=== PATIENT | male | born 1990 | race Caucasian/White ===

== ENCOUNTER 2020-05-11 11:47 | Emergency (ER) | payer SELFPAY ==
[2020-05-11 11:57] VITALS: BP 140/67; PULSE 111; RESP 18; TEMP 37.2; O2SAT 98; BMI 31.4
[2020-05-11 12:20] VITALS: BP 146/62; PULSE 111; RESP 20; O2SAT 98
--- NOTE | 2020-05-11 12:39 | ED_ITS ---
HPI - General Adult General: Chief complaint: General Medical Stated complaint: Confusion/fatigue Time Seen by Provider: 05/11/20 12:12 History of Present Illness: HPI narrative: Patient is a 29-year-old male who comes to the ED with scrotal pain, dysuria and penile discharge for the past 2 weeks. Patient denies any previous STDs. Denies any recent sexual intercourse over the last 2 weeks. Denies fever, chills, abdominal pain, flank pain, nausea/vomiting or bowel symptoms. He describes the penile discharge as white/yellow. He says it aquino whenever he urinates and he has tenderness in his scrotal area. Denies any lesions on the scrotum. Associated symptoms: Deny chest pain, dyspnea, headache(s), nausea, rash, palpitations or vomiting Review of Systems Const: Denies: fever(s), chills or fatigue Eyes: Denies: change in vision or eye discomfort ENMT: Denies: throat pain, odynophagia, nasal discharge or nasal congestion Card: Denies: chest pain, palpitations, edema, swelling of feet/ankles, dyspnea on exertion or orthopnea Resp: Denies: dyspnea, productive cough or non-productive cough GI: Denies: abdominal pain, nausea, vomiting, diarrhea, constipation or hematochezia : Reports: dysuria and penile discharge (white/yellow discharge); Denies: flank pain, difficulty urinating or hematuria Musc: Denies: neck pain, back pain or extremity swelling Skin/Breast: Denies: rash or new lesions Neuro: Denies: headache(s), numbness in extremities or weakness in extremities Physical Exam Narrative: EXAM NARRATIVE: Patient is a 29-year-old male who is sitting comfortably on exam chair when I enter the room. He is showing no signs of acute distress. Const: COMMON NORMALS: no acute distress, patient oriented x3 and alert GENERAL APPEARANCE: cooperative and comfortable HENMT: COMMON NORMALS: normocephalic HEAD & SCALP: normocephalic MOUTH: Normal oral and palatal mucosa present THROAT: posterior oropharynx normal and uvula midline Neck/C-Spine: COMMON NORMALS: supple GENERAL: Yes normal visual inspection Resp: COMMON NORMALS: normal respiratory effort, No retractions, No use of accessory muscles and clear to auscultation bilaterally AUSCULTATION: clear to auscultation bilaterally Cardio: COMMON NORMALS: regular rate, regular rhythm, S1 normal heart sound present, S2 normal heart sound present, No gallops present (Cardio), No clicks present (Cardio), No murmurs present (Cardio) and Peripheral pulses 2+ throughout RATE: regular rate RHYTHM: regular rhythm HEART SOUNDS: S1 normal heart sound present and S2 normal heart sound present PERIPHERAL PULSES: Peripheral pulses 2+ throughout GI: COMMON NORMALS: Normal to inspection, nondistended, normoactive bowel sounds present, Soft to palpation, non-tender and no masses PALPATION: Yes Soft to palpation : COMMON NORMALS: Yes no CVA tenderness BLADDER/KIDNEY EXAM: Yes no CVA tenderness PENIS: normal penis, circumcised, no papules, no pustules and no vesicles MEATUS: meatus normal, meatal discharge (Purulent discharge.) and No Blood at meatus present SCROTUM: Yes Scrotal tenderness present, No Scrotal lesions present and No scrotal mass TESTES: Yes testicular lie normal, No Enlarged testicle(s) present, No testicular swelling and Yes testicular tenderness Testicular tenderness laterality: bilateral Back/Pelvis: COMMON NORMALS: no CVA tenderness Extremity: COMMON NORMALS: normal to inspection Neuro: COMMON NORMALS: patient oriented x3 and moves all extremities SENSORIUM/ORIENTATION: Yes alert Skin: GENERAL SKIN EXAM: dry skin Course Vital Signs: Vital signs: Vital Signs Temperature 97.9 F 05/11/20 15:28 Pulse Rate 79 05/11/20 15:28 Respiratory Rate 18 05/11/20 15:28 Blood Pressure 143/88 05/11/20 15:28 Pulse Oximetry 96 05/11/20 15:28 MDM - General Adult MDM Narrative: Medical decision making narrative: Patient is a 29-year-old male who comes to the ED with dysuria and scrotal pain. Exam shows a patient in no acute distress and he is sitting comfortably on chair when I entered the room. Genitalia exam-no lesions or erythema seen. Scrotal tenderness upon palpation. Visible whitish-yellow discharge from meatus. White blood cell count 10.2. Rest of CBC CMP were unremarkable. UA showed bacteria and many white blood cells. Wet prep showed no clue cells, yeast or trichomonas. Gonorrhea and Chlamydia test pending. Ultrasound of scrotum showed no acute findings. Patient was preemptively treated for gonorrhea and chlamydia with azithromycin and Rocephin. He was diagnosed with UTI and put on a prescription of Bactrim. Follow-up with PCP in 7 to 10 days. Return to ED precautions given. Patient understood and agreed with plan. Lab Data: Attestation: I reviewed the patient's lab results. Labs: Lab Results 05/11/20 05/11/20 05/11/20 Range/Units 13:15 13:18 13:18 WBC 10.2 H (4.0-10.0) 10^3/ uL RBC 5.30 (4.1-5.3) 10^6/u L Hgb 15.0 (11.7-16.6) g/dL Hct 46.6 (42.0-52.0) % MCV 87.9 (80-94) fL MCH 28.3 (28.0-34.0) pg MCHC 32.2 (30.0-36.0) g/dL RDW 12.1 (12.1-15.1) % Plt Count 281 (130-400) 10^3/c mm MPV 10.2 (7.4-10.4) fL Neut % (Auto) 79.0 % Lymph % (Auto) 11.2 % [place] % (Auto) 8.4 % Eos % (Auto) 0.7 % Baso % (Auto) 0.5 % Neut # (Auto) 8.06 H (1.8-7.7) 10^3/u L Lymph # (Auto) 1.1 (0.8-4.8) 10^3/u L [place] # (Auto) 0.9 (0.2-0.9) 10^3/u L Eos # (Auto) 0.1 (0.0-0.8) 10^3/u L Baso # (Auto) 0.1 (0.0-0.1) 10^3/u L Nucleated RBC % (a uto) 0 % Nucleated RBCs # 0.0 /100WBC Sodium 137 (136-145) mmol/L Potassium 4.2 (3.5-5.1) mmol/L Chloride 98 (98-107) mmol/L Carbon Dioxide 27 (22-29) mmol/L Anion Gap 16.2 (5-19) BUN 9 (6-20) mg/dL Creatinine 0.7 (0.7-1.2) mg/dL GFR Calculation 134.3 H (90-130) mL/min Glucose 110 (65-115) mg/dL Calculated Osmolal ity 283 L (285-295) mOsm/k g Calcium 10.5 (8.5-10.5) mg/dL Total Bilirubin 0.5 (0.15-1.2) mg/dL AST 26 (0-40) U/L ALT 36 (0-41) U/L Alkaline Phosphata se 113 (40-130) IU/L Total Protein 8.5 (6.6-8.7) g/dL Albumin 4.8 (3.5-5.2) g/dL Globulin 3.7 (1.3-4.6) g/dL Urine Color Yellow (Yellow) Urine Appearance Cloudy (CLEAR) Urine pH 5 (5-7) Ur Specific Gravit y 1.020 (1.005-1.030) Urine Protein Trace (Negative) Urine Glucose (UA) Norm (Normal) Urine Ketones 1+ H (Negative) Urine Blood 2+ H (Negative) Urine Nitrate Negative (Negative) Urine Bilirubin Neg (Negative) Urine Urobilinogen 1 H (Negative) mg/dL Ur Leukocyte Eladia ase 2+ H (Negative) Urine RBC 0-4 H (0-2) /hpf Urine WBC Too numerous to c nt H (0-5) /hpf Ur Squamous Epith Cells 0-4 H (0-5) /hpf Amorphous Sediment Not Reportable Urine Bacteria 1+ H (NONE) /hpf Urine Mucus 2+ /hpf Imaging Data^: US: Attestation: I personally reviewed and interpreted this imaging study as follows: Radiologist's impression: [address] [address] Ultrasound Report Signed Patient: Biju Bryson Unit #: [id number] : 1990 Age/Sex: 29 / M ADM Date: 05/11/20 Loc: ER Room/Bed: Attending Dr: Ordering Provider/Ordering MD: Biju Montaño Date of Service: 05/11/20 Procedure(s): US scrotum [id number] Accession Number(s): [id number] Report Number: [id number] WS: [id number] SCROTAL ULTRASOUND EXAMINATION CLINICAL INFORMATION: scrotal pain COMPARISON: None. FINDINGS: TESTES Normal in size and echotexture, without focal lesion. Color Doppler: Normal color Doppler flow pattern. Right testes size: 5.0 cm x 3.0 cm x 2.6 cm. Left testes size: 4.7 cm x 2.7 cm x 2.6 cm. EPIDIDYMIDES Color Doppler: Normal color Doppler flow pattern. Right epididymis size: 1.4 cm Left epididymitis size: 1.3 cm HYDROCELE None. VARICOCELE None. OTHER FINDINGS Lobulated bilobed right-sided spermatocele measuring 1.3 x 1.6 cm and 1.4 x 1.1 cm US/US scrotum [id number] IMPRESSION: 1. Testicles are normal in size and echotexture with normal vascularity. 2. Lobulated bilobed right-sided spermatocele measuring 1.3 x 1.6 cm and 1.4 x 1.1 cm Dictated By: Jj Dorantes MD Signed By: Jj Dorantes MD Signed Date/Time: 05/11/201453 DD/ 50 Discharge Plan Discharge Patient Disposition: Home Clinical Impression: UTI (urinary tract infection) Qualifiers: Urinary tract infection type: urethritis Qualified Code(s): N34.2 - Other urethritis Condition: Stable Prescriptions: New Bactrim DS 800-160 mg tablet 1 tab PO BID 7 Days Qty: 14 RF: 0 Discharge Orders: Discharge Order (Routine); Ordered 05/11/20 Ordered By: Biju Montaño Discharge Diet: Regular Discharge Activity: Resume usual activity Patient Instructions: Sexually Transmitted Diseases (ED), Urinary Tract Infection in Men (ED) Activity Restrictions/Additional Instructions: Follow-up with medical provider as directed in 7-10 days. Take medications as prescribed. Return to the ER or your medical provider if condition worsens. Please read and understand discharge instructions. If any questions, please ask. Discharge Date/Time: 05/11/20 15:30 Coding Level of Care Code ED [employer] Fwd Exam Comprehensive
--- NOTE | 2020-05-11 12:49 | US_ITS ---
WS: [id number] SCROTAL ULTRASOUND EXAMINATION CLINICAL INFORMATION: scrotal pain COMPARISON: None. FINDINGS: TESTES Normal in size and echotexture, without focal lesion. Color Doppler: Normal color Doppler flow pattern. Right testes size: 5.0 cm x 3.0 cm x 2.6 cm. Left testes size: 4.7 cm x 2.7 cm x 2.6 cm. EPIDIDYMIDES Color Doppler: Normal color Doppler flow pattern. Right epididymis size: 1.4 cm Left epididymitis size: 1.3 cm HYDROCELE None. VARICOCELE None. OTHER FINDINGS Lobulated bilobed right-sided spermatocele measuring 1.3 x 1.6 cm and 1.4 x 1.1 cm US/US scrotum [id number] IMPRESSION: 1. Testicles are normal in size and echotexture with normal vascularity. 2. Lobulated bilobed right-sided spermatocele measuring 1.3 x 1.6 cm and 1.4 x 1.1 cm
[2020-05-11 13:21] VITALS: BP 130/84; PULSE 83; RESP 20; O2SAT 96
[2020-05-11 13:32] LABS: Basophils # 0.1 10^3/uL (0.0-0.1); Basophils % 0.5 %; Eosinophils # 0.1 10^3/uL (0.0-0.8); Eosinophils % 0.7 %; Hematocrit 46.6 % (42.0-52.0); Lymphocytes # 1.1 10^3/uL (0.8-4.8); Lymphocytes % 11.2 %; Mean Corpuscular HGB Conc 32.2 g/dL (30.0-36.0); Mean Corpuscular Hemoglobin 28.3 pg (28.0-34.0); Mean Corpuscular Volume 87.9 fL (80-94); Mean Platelet Volume 10.2 fL (7.4-10.4); Monocytes # 0.9 10^3/uL (0.2-0.9); Monocytes % 8.4 %; Neutrophils # 8.06 10^3/uL (1.8-7.7); Nucleated Red Blood Cells % 0 %; Platelet Count 281 10^3/cmm (130-400); Red Cell Distribution Width 12.1 % (12.1-15.1); White Blood Count 10.2 10^3/uL (4.0-10.0)
[2020-05-11] MEDS: azithromycin 250 mg Tablet 1000 MG PO (13:32)
[2020-05-11] MEDS: cefTRIAXone 1,000 mg SDV 500 MG IM (13:33)
[2020-05-11] MEDS: lidocaine 1% INJ 20 mL IM (13:33)
[2020-05-11 13:44] LABS: Add Urine Microscopic? YES; Bilirubin Urine Neg (Negative); Blood Urine 2+ (Negative); Glucose Urine UA Norm (Normal); Ketones Urine 1+ (Negative); Leukocyte Esterase Urine 2+ (Negative); Nitrate Urine Negative (Negative); Protein Urine Trace (Negative); Urine Appearance Cloudy (CLEAR); Urine Color Yellow (Yellow); Urobilinogen Urine 1 mg/dL (Negative); pH Urine 5 (5-7)
[2020-05-11 13:46] LABS: RBC Urine 0-4 /hpf (0-2); WBC Urine TOO NUMEROUS TO CNT /hpf (0-5)
[2020-05-11 13:47] LABS: Bacteria Urine 1+ /hpf; Mucus Urine 2+ /hpf; Squamous Epithelial Cell Urine 0-4 /hpf (0-5)
[2020-05-11 13:48] LABS: Add Urine Culture? Yes
[2020-05-11 13:59] LABS: Alanine Aminotransferase 36 U/L (0-41); Albumin Level 4.8 g/dL (3.5-5.2); Alkaline Phosphatase 113 IU/L (40-130); Anion Gap 16.2 (5-19); Aspartate Amino Transferase 26 U/L (0-40); Blood Urea Nitrogen 9 mg/dL (6-20); Calcium 10.5 mg/dL (8.5-10.5); Carbon Dioxide 27 mmol/L (22-29); Chloride 98 mmol/L (98-107); Globulin 3.7 g/dL (1.3-4.6); Glomerular Filtration Rate 134.3 mL/min (90-130); Glucose 110 mg/dL (65-115); Osmolality Calculated 283 mOsm/kg (285-295); Potassium 4.2 mmol/L (3.5-5.1); Sodium 137 mmol/L (136-145); Total Bilirubin 0.5 mg/dL (0.15-1.2); Total Protein 8.5 g/dL (6.6-8.7)
[2020-05-11 14:00] VITALS: PULSE 86; RESP 18; O2SAT 96
[2020-05-11] MEDS: ketorolac 60 mg/2 mL INJ IM (14:05)
[2020-05-11 15:28] VITALS: BP 143/88; PULSE 79; RESP 18; TEMP 36.6; O2SAT 96
== END 2020-05-11 15:30 | disposition home or self-care (01) ==
PROVIDERS: Emergency Provider Physician Assistant
DX: N34.2 Other urethritis (principal)
CPT/HCPCS: 12345; 76870; 80053; 81001; 85025; 87040; 87086; 87210; 87491; 87591; 96372; 99283; J0696; J1885; Q0144